=== PATIENT | male | born 1995 | race Caucasian/White ===

== ENCOUNTER 2017-10-12 19:09 | Emergency (ER) | payer BC ==
[~2017-10-12] VITALS: Ht 175.3 cm; Wt 74.7 kg
[2017-10-12 19:19] VITALS: TEMP 36.7; Ht 175.3 cm; Wt 74.7 kg
[2017-10-12] MEDS ORDERED: ONDANSETRON INJ 2 MG/ML 2 ML VIAL IV STA (19:38)
[2017-10-12] MEDS ORDERED: SODIUM CHLORIDE 0.9% 1000ML 1,000 ML IV STA ×2 (19:38→21:27)
[2017-10-12] MEDS ORDERED: CETI10TA84 PO (19:53)
[2017-10-12] MEDS ORDERED: IBUP-1449 PO (19:54)
[2017-10-12] MEDS ORDERED: ONDA4TAB46 PO (19:55)
[2017-10-12 20:09] LABS: BASO % 0.2 %; BASO ABS # 0.02 K/uL (0-0.2); EOS % 0.1 %; EOS ABS # 0.01 K/uL (0-0.5); HEMATOCRIT 45.9 % (42-52); HEMOGLOBIN 16.9 g/dL (14.0-18.0); IG# 0.03 K/uL (0.00-0.02); LYMPH % 12.8 %; LYMPH ABS # 1.15 K/uL (1.2-3.4); MEAN CELL VOLUME 85.8 fL (80-100); MEAN CORPUSCULAR HEMOGLOBIN 31.6 pg (25-34); MEAN CORPUSCULAR HGB CONC 36.8 g/dl (32-36); MONO ABS # 0.45 K/uL (0.11-0.59); NEUT % 81.6 %; NEUT ABS # 7.32 K/uL (1.4-6.5); PLATELET COUNT 279 K/uL (130-400); RED CELL DISTRIBUTION WIDTH CV 12.2 % (11.5-14.5); WHITE BLOOD COUNT 8.98 K/uL (4.8-10.8)
[2017-10-12 20:30] LABS: CREATININE 1.04 mg/dl (0.60-1.40)
[2017-10-12 20:31] LABS: ALBUMIN 4.9 gm/dl (3.4-5.0); POTASSIUM 3.6 mmol/L (3.5-5.1)
[2017-10-12 20:33] LABS: TOTAL PROTEIN 8.5 gm/dl (6.4-8.2)
--- NOTE | 2017-10-12 20:45 | DIAGNOSTIC IMAGING REPORT ---
CHEST ONE VIEW PORTABLE CLINICAL HISTORY: 22 years-old Male presenting with flu like symptoms. TECHNIQUE: Portable upright AP view of the chest was obtained. COMPARISON: None. FINDINGS: Cardiomediastinal silhouette normal. No focal opacity. No large effusion or pneumothorax. Osseous structures normal. Upper abdomen normal. IMPRESSION: 1. No acute cardiopulmonary disease. Electronically signed by: Kelvin Montez M.D. 10/12/2017 8:44 PM Dictated Date/Time: 10/12/2017 8:44 PM
[2017-10-12 22:14] VITALS: O2SAT 99
[2017-10-12] MEDS ORDERED: PHENERGAN 25MG HOMEPACK PO ONE (22:15)
[2017-10-12] MEDS ORDERED: LORAZEPAM 0.5 MG TAB SL STA (22:28)
[2017-10-12] MEDS ORDERED: ACETAMINOPHEN 500 MG TAB PO STA (22:28)
[2017-10-12] MEDS ORDERED: ATIVAN 1MG HOMEPACK PO ONE (22:30)
[2017-10-12 22:54] VITALS: BP 138/82; PULSE 99
--- NOTE | 2017-10-12 23:09 | EMERGENCY ROOM VISIT NOTE ---
History Report prepared by Jose Raul: Vivek Jaramillo Under the Supervision of: Dr. Brett Johns M.D. First contact with patient: 19:21 Chief Complaint: ILLNESS Stated Complaint: NAUSEA,HEADACHE,CHEST PAIN,LIGHT HEADED,DIZZY History of Present Illness The patient is a 22 year old male who presents to the Emergency Room with complaints of constant nausea beginning two days ago. The patient states his symptoms began Tuesday evening while he was lying in bed. He reports he had a large wave of anxiety, and he had to get out of bed. The patient notes he has not had this before. He states yesterday his stomach was upset and he had loose stools, but he thought this was because it was his first day at a new job. The patient reports he was occasionally dizzy, lightheaded, and weak yesterday. He notes he developed a scratchy throat throughout the day. The patient states he returned home yesterday and was still very nauseous and queasy in his stomach. He reports he has not eaten anything since lunch time yesterday. The patient notes he took ibuprofen at 1500 and it did not help. He states he went to [employer] at 1800 and had an EKG, blood sugar check, and blood pressure check. The patient reports his tests were within normal limits, and he was given Zofran. He notes the Zofran mildly helped his symptoms. The patient states he was told to go to the ED for further evaluation because he was slightly dehydrated and his symptoms were abnormal. He reports drinking water helped his headache. The patient notes he is still queasy, and he does not have discrete abdominal pain. Pt denies LOC, headache, fevers, chills, diaphoresis, visual changes, neck pain, chest pain, breathing difficulties, vomiting, back pain, melena, hematochezia, urinary symptoms, numbness, lymphadenopathy, rash, or other complaints. Source of History: patient Onset: two days ago Quality: other (nausea) Timing: constant Modifying Factors (Relieving): other (Zofran) Associated Symptoms: + weakness Note: Associated symptoms: dizziness, lightheadedness, scratchy throat Review of Systems See HPI for pertinent positives and negatives. A total of ten systems were reviewed and were otherwise negative. Past Medical & Surgical Medical Problems: (1) Cardiac arrhythmia Family History Patient reports no known family medical history. Social History Smoking Status: Never Smoker Marital Status: single Occupation Status: [employer] student Current/Historical Medications Scheduled Cetirizine (Zyrtec), 10 MG PO DAILY Scheduled PRN Ibuprofen Tab (Motrin), 400 MG PO BID PRN for Pain Ondansetron Hcl (Zofran), 4 MG PO DAILY PRN for Nausea Allergies Coded Allergies: No Known Allergies (Unverified , 10/12/17) Physical Exam Vital Signs Date Time Temp Pulse Resp B/P (MAP) Pulse Ox O2 Delivery O2 Flow Rate FiO2 10/12/17 22:54 99 18 138/82 10/12/17 22:14 92 20 138/82 99 Room Air 10/12/17 21:15 87 20 137/84 99 Room Air 10/12/17 20:16 79 10/12/17 19:19 36.7 95 18 123/80 98 Room Air Physical Exam GENERAL: Awake, alert, mildly ill appearing, no distress HEAD: Normocephalic, atraumatic. No edema. EYES: Normal conjunctiva. Sclera non-icteric. EARS: Right TM normal. Left TM normal. NOSE: Mild congestion. OROPHARYNX: Lips, tongue, and mucosa unremarkable. No erythema or exudate. NECK: Supple. No nuchal rigidity. FROM. No adenopathy. Negative jolt accentuation test. RESPIRATORY: CTA bilaterally. No wheezes rales or rhonchi. Normal respiratory effort. CARDIAC: Borderline tachycardic rate. Normal rhythm. No murmurs. No rubs. GI: Soft, non distended. No tenderness to palpation. NEURO: Normal sensorium. Normal speech. SKIN: No rash or jaundice noted. Medical Decision & Procedures ER Provider Diagnostic Interpretation: X-ray: Per my interpretation, radiologist review. CHEST ONE VIEW PORTABLE CLINICAL HISTORY: 22 years-old Male presenting with flu like symptoms. TECHNIQUE: Portable upright AP view of the chest was obtained. COMPARISON: None. FINDINGS: Cardiomediastinal silhouette normal. No focal opacity. No large effusion or pneumothorax. Osseous structures normal. Upper abdomen normal. IMPRESSION: 1. No acute cardiopulmonary disease. Electronically signed by: Kelvin Montez M.D. 10/12/2017 8:44 PM Dictated Date/Time: 10/12/2017 8:44 PM Laboratory Results 10/12/17 19:53 Red Blood Count 5.35, Mean Corpuscular Volume 85.8, Mean Corpuscular Hemoglobin 31.6, Mean Corpuscular Hemoglobin Concent 36.8, Mean Platelet Volume 9.0, Neutrophils (%) (Auto) 81.6, Lymphocytes (%) (Auto) 12.8, Monocytes (%) (Auto) 5.0, Eosinophils (%) (Auto) 0.1, Basophils (%) (Auto) 0.2, Neutrophils # (Auto) 7.32, Lymphocytes # (Auto) 1.15, Monocytes # (Auto) 0.45, Eosinophils # (Auto) 0.01, Basophils # (Auto) 0.02 10/12/17 19:53 Test 10/12/17 19:53 10/12/17 21:30 White Blood Count 8.98 K/uL (4.8-10.8) Red Blood Count 5.35 M/uL (4.7-6.1) Hemoglobin 16.9 g/dL (14.0-18.0) Hematocrit 45.9 % (42-52) Mean Corpuscular Volume 85.8 fL (80-100) Mean Corpuscular Hemoglobin 31.6 pg (25-34) Mean Corpuscular Hemoglobin Concent 36.8 g/dl (32-36) Platelet Count 279 K/uL (130-400) Mean Platelet Volume 9.0 fL (7.4-10.4) Neutrophils (%) (Auto) 81.6 % Lymphocytes (%) (Auto) 12.8 % Monocytes (%) (Auto) 5.0 % Eosinophils (%) (Auto) 0.1 % Basophils (%) (Auto) 0.2 % Neutrophils # (Auto) 7.32 K/uL (1.4-6.5) Lymphocytes # (Auto) 1.15 K/uL (1.2-3.4) Monocytes # (Auto) 0.45 K/uL (0.11-0.59) Eosinophils # (Auto) 0.01 K/uL (0-0.5) Basophils # (Auto) 0.02 K/uL (0-0.2) RDW Standard Deviation 38.0 fL (36.4-46.3) RDW Coefficient of Variation 12.2 % (11.5-14.5) Immature Granulocyte % (Auto) 0.3 % Immature Granulocyte # (Auto) 0.03 K/uL (0.00-0.02) Anion Gap 9.0 mmol/L (3-11) Est Creatinine Clear Calc Drug Dose 112.4 ml/min Estimated GFR () 118.4 Estimated GFR (Non- 102.2 BUN/Creatinine Ratio 12.4 (10-20) Calcium Level 10.0 mg/dl (8.5-10.1) Total Bilirubin 2.1 mg/dl (0.2-1) Direct Bilirubin 0.3 mg/dl (0-0.2) Aspartate Amino Transf (AST/SGOT) 16 U/L (15-37) Alanine Aminotransferase (ALT/SGPT) 27 U/L (12-78) Alkaline Phosphatase 140 U/L (45-117) Total Protein 8.5 gm/dl (6.4-8.2) Albumin 4.9 gm/dl (3.4-5.0) Lipase 112 U/L (73-393) Urine Color YELLOW Urine Appearance CLEAR (CLEAR) Urine pH 5.5 (4.5-7.5) Urine Specific [place] 1.013 (1.000-1.030) Urine Protein NEG (NEG) Urine Glucose (UA) NEG (NEG) Urine Ketones 1+ (NEG) Urine Occult Blood NEG (NEG) Urine Nitrite NEG (NEG) Urine Bilirubin NEG (NEG) Urine Urobilinogen NEG (NEG) Urine Leukocyte Esterase NEG (NEG) Laboratory results reviewed by me Medications Administered Medications (Trade) Dose Ordered Sig/Joya Route Start Time Stop Time Status Last Admin Dose Admin Sodium Chloride 1,000 ml @ 999 mls/hr Q1H1M STAT IV 10/12/17 19:38 10/12/17 20:38 DC 10/12/17 20:02 999 MLS/HR Ondansetron HCl (Zofran Inj) 4 mg NOW STAT IV 10/12/17 19:38 10/12/17 19:42 DC 10/12/17 20:02 4 MG Sodium Chloride 1,000 ml @ 999 mls/hr Q1H1M STAT IV 10/12/17 21:27 10/12/17 22:27 DC 10/12/17 21:27 999 MLS/HR Promethazine HCl (Phenergan 25MG Home Pack) 1 homepack UD ONCE PO 10/12/17 22:15 10/12/17 22:16 DC 10/12/17 22:49 1 HOMEPACK Lorazepam (Ativan Tab) 0.5 mg NOW STAT SL 10/12/17 22:28 10/12/17 22:29 DC 10/12/17 22:48 0.5 MG Lorazepam (Ativan 1MG Home Pack) 1 homepack UD ONCE PO 10/12/17 22:30 10/12/17 22:31 DC 10/12/17 22:48 1 HOMEPACK Acetaminophen (Tylenol Tab) 1,000 mg NOW STAT PO 10/12/17 22:28 10/12/17 22:29 DC 10/12/17 22:48 1,000 MG ED Course 1936: The patient was evaluated in room C09. A complete history and physical exam was performed. 1937: Ordered Ondansetron HCl 4mg IV, Sodium Chloride 1000 ml @ 999 mls/hr IV 2108: I reevaluated the patient and discussed current exam findings. 2126: Ordered Sodium Chloride 1000 ml @ 999 mls/hr IV 2200: I reevaluated the patient. He is feeling better. His friend is going to the car to get the [facility] files that were given to him at discharge to ensure there are no conflicting results. 5: Ordered Promethazine HCl 1 homepack PO 222: Review of [facility] records states the patient's EKG is Normal Sinus with a rate of 86. There is no acute ischemic change, ectopy, or signs of pericarditis. Normal intervals. 7: I reevaluated the patient. He is mildly anxious. Discussed results and discharge instructions: he verbalized understanding and agreement. The patient is ready for discharge when he receives his medication. 8: Ordered Acetaminophen 1000mg PO, Lorazepam 0.5mg SL 2230: Ordered Lorazepam 1 homepack PO Medical Decision Nursing notes reviewed and agree them. The patient's history was concerning for flulike symptoms and anxiety. Differential diagnosis: Etiologies such as viral syndrome, anxiety, metabolic, infection, hypo/ hyperglycemia, electrolyte abnormalities, cardiac sources, intracerebral event, toxicologic, neurologic, as well as others were entertained. Physical examination: As above. No meningeal findings. Benign abdomen. Clear lungs. Vital signs stable. ER treatment provided: IV Lock Normal saline hydration IV Zofran On reassessment the patient felt better. Ativan home pack Phenergan home pack Ativan 0.5 mg sublingual Diagnostics interpretation by me: ECG: ECG performed at the urgent care center was reviewed and was normal. No abnormal findings noted. The labs revealed an unremarkable CBC and chemistry panel. LFTs showed slight elevation of his indirect bilirubin. AST and ALT were unremarkable. Imaging studies: Chest x-ray as above The patient is doing very well at this time. He had several symptoms noted. He was reassessed and I did discuss anxiety with him. He notes a strong family history of this. This was brought up from the urgent care side when I reviewed their documents. He did have nausea and loose stool. It is possible that he has a viral syndrome in addition to anxiety symptoms. I did offer him a dose of Ativan here as well as a few to take home in case he has a flare up and he felt comfortable with this plan. He was given a dose of sublingual Ativan here. He was given a Phenergan home pack. I did advise him to have close follow-up as an outpatient. He was in agreement. I gave my usual and customary discussion regarding this issue. By the evaluation outlined above other emergent etiologies such as those listed in the differential, as well as others, were deemed relatively unlikely. The patient was educated about the findings as listed above. All questions were answered and the patient was pleased with the treatment. Return instructions were outlined and the patient was discharged in stable condition. The patient was referred to primary care for follow-up for a recheck of the current condition. Medication Reconcilliation Current Medication List: was personally reviewed by me Blood Pressure Screening Patient's blood pressure: Normal blood pressure Blood pressure disposition: Did not require urgent referral Impression Primary Impression: Flu-like symptoms Additional Impression: Anxiety Scribe Attestation The scribe's documentation has been prepared under my direction and personally reviewed by me in its entirety. I confirm that the note above accurately reflects all work, treatment, procedures, and medical decision making performed by me. Departure Information Dispostion Home / Self-Care Forms HOME CARE DOCUMENTATION FORM, IMPORTANT VISIT INFORMATION, WORK / SCHOOL INSTRUCTIONS Patient Instructions My [facility] Additional Instructions Phenergan 25mg tabs, one every six hours for nausea. Ativan 1 mg: Take one 3 times daily as needed for severe anxiety. Do not drive if taking. May cause drowsiness. Do not take if you are at work or doing any activity where being under the influence may be dangerous. Acetaminophen(Tylenol) may be used for fever or pain. Use 1000mg every six hours as needed. Avoid using more than 4000mg in a 24 hour period. (AND/OR) Ibuprofen(Motrin, Advil) may be used for fever or pain. Use 600mg every six hours as needed. Take with food. Avoid using more than 2400mg in a 24 hour period. Do not use 2400mg per day for more than three consecutive days without physician direction. Prolonged inappropriate use can lead to stomach upset or ulcers. Rest and drink plenty of fluids. Controlling your fever with Tylenol and Ibuprofen as above will make you feel better. Return to the ER for severe headache, neck stiffness, chest pain, difficulty breathing, fevers, vomiting, worsening of your condition, or as needed. Follow up with your primary physician this week for a recheck of your current condition. Have a recheck of your bilirubin numbers as they were just mildly elevated. This is unrelated to your symptoms. Problem Qualifiers
== END 2017-10-12 22:52 | disposition home or self-care (01) ==
LOC: C.EDB 19:11 → C.EDC 22:52
DX: R11.0 Nausea (principal); R19.7 Diarrhea, unspecified; R42 Dizziness and giddiness; R53.1 Weakness; F41.9 Anxiety disorder, unspecified